=== PATIENT | female | born 1960 | race Caucasian/White ===

== ENCOUNTER → 2018-05-20 | Outpatient (REF) | payer OTHER ==
[2018-05-20 15:06] LABS: THYROID STIMULATING HORMONE 1.61 uIU/ML (0.358-3.740)
[2018-05-20 15:07] LABS: FOLATE 21.8 NG/ML (>5.4)
[2018-05-25 08:50] LABS: VITAMIN B1 LEVEL WHOLE BLOOD 123.3 nmol/L (66.5-200.0); VITAMIN B6,PYRIDOXAL PHOSPHATE 25.4 ug/L (2.0-32.8); VITAMIN E(ALPHA TOCOPHEROL) 11.9 mg/L (7.0-25.1); VITAMIN E(GAMMA TOCOPHEROL) 1.3 mg/L (0.5-5.5)
== END ==
LOC: M LABNEURO 11:01
PROVIDERS: ATTEND Psychiatry & Neurology Neurology
DX: E53.8 Deficiency of other specified B group vitamins (principal)